=== PATIENT | male | born 1955 | race Caucasian/White ===

== ENCOUNTER 2018-01-30 09:23 | Inpatient (IN) ==
[2018-01-30] MEDS ORDERED: ALBUTEROL/IPRATROPIUM 3 ML NEB RESP TX STA (09:46)
[2018-01-30] MEDS ORDERED: FUROSEMIDE 100 MG/10 ML VIAL IV STA (09:46)
[2018-01-30] MEDS ORDERED: hydrALAZINE 20 MG/1 ML VIAL IV STA (09:46)
[2018-01-30 09:50] LABS: Basophils % 0.4 % (0.0-0.8); Eosinophils # 0.2 10*3/uL (0.0-0.87); Eosinophils % 2.3 % (0.00-10.9); Hematocrit 36.8 VOL% (42.0-52.0); Hemoglobin 12.4 GM/DL (14.0-18.0); Immature Granulocytes % 0.4 %; Immature Granulocytes Absolute 0.03 #; Lymphocytes % 13.1 % (21.2-54.2); Mean Corpuscular HGB Conc 33.7 GM/DL (32-36); Mean Corpuscular Hemoglobin 32 PG (27-34); Mean Corpuscular Volume 94.1 FL (87-102); Monocytes # 0.6 10*3/uL (0.11-0.8); Monocytes % 7.3 % (1.7-12.7); Neutrophils % 76.5 % (38.7-73.9); Platelet Count 155 T/CUMM (130-400); Red Blood Count 3.91 MC/CUMM (3.8-5.5); Red Cell Distribution Width 14.3 % (9.3-17.3); White Blood Count 7.9 T/CUMM (4-12)
[2018-01-30 10:03] LABS: Alanine Aminotransferase 20 U/L (16-61); Albumin 3.6 G/DL (3.4-5.0); Alkaline Phosphatase 60 U/L (45-117); Aspartate Amino Transferase 19 U/L (0-37); Blood Urea Nitrogen 16 MG/DL (7-18); Calcium 8.9 MG/DL (8.5-10.1); Glucose 110 MG/DL (74-106); Potassium 4.3 MMOL/L (3.5-5.1); Sodium 143 MMOL/L (136-145); Total Protein 7.2 G/DL (6.4-8.3); Troponin I Only < 0.015 NG/ML (0.00-0.045)
[2018-01-30 10:07] LABS: INR 0.9; PT Patient Result 9.9 SECS
[2018-01-30 10:10] LABS: Troponin I Only < 0.015 NG/ML (0.00-0.045)
[2018-01-30] MEDS ORDERED: ONDANSETRON 4 MG/2 ML VIAL IV PRN (10:38)
[2018-01-30] MEDS ORDERED: GLUCAGON 1 MG VIAL IM PRN (10:38)
[2018-01-30] MEDS ORDERED: DEXTROSE 50% 25 GM/50 ML VIAL IV PRN (10:38)
[2018-01-30 11:02] LABS: Apearance,Urine CLEAR (Clear); Bilirubin,Urine Negative (Negative); Blood, Urine Negative (Negative); Glucose,Urine (UA) Negative (Negative); Ketones,Urine Negative (Negative); Mucus,Urine Occasional /LPF (Occasional); Nitrite,Urine Negative (Negative); Protein,Urine Negative; RBC,Urine <1 /HPF (0-4); Squamous Epithelial Cell,Urine Occasional /HPF (0-10); Urine Color Straw (Yellow); Urine Specific Gravity 1.006 (1.001-1.035); Urine Urobilinogen < 2.0 EU/DL (0.2-1.0); WBC,Urine <1 /HPF (0-6)
[2018-01-30] MEDS ORDERED: cloNIDine 0.1 MG TABLET PO PRN (11:58)
[2018-01-30] MEDS: INSULIN REGULAR 100 UNIT/ML SUBCUT SCH ×3 (13:31→21:05)
[2018-01-30] MEDS: amLODIPine 10 MG TABLET PO SCH (13:32)
[2018-01-30] MEDS: metFORMIN 500 MG TABLET PO SCH (16:49)
[2018-01-30] MEDS: GLIMEPIRIDE 2 MG TABLET PO SCH (16:49)
[2018-01-30] MEDS: FUROSEMIDE 40 MG/4 ML VIAL IV SCH (16:50)
[2018-01-30] MEDS: GEMFIBROZIL 600 MG TABLET PO SCH (21:49)
[2018-01-30] MEDS: TICAGRELOR 90 MG TABLET PO SCH (21:49)
[2018-01-30] MEDS: CARVEDILOL 25 MG TABLET PO SCH (21:49)
[2018-01-31 02:12] LABS: Basophils % 0.3 % (0.0-0.8); Eosinophils # 0.2 10*3/uL (0.0-0.87); Eosinophils % 2.9 % (0.00-10.9); Hematocrit 33.2 VOL% (42.0-52.0); Hemoglobin 11.2 GM/DL (14.0-18.0); Immature Granulocytes % 0.4 %; Immature Granulocytes Absolute 0.03 #; Lymphocytes # 1.3 10*3/uL (1.4-4.0); Lymphocytes % 19.6 % (21.2-54.2); Mean Corpuscular HGB Conc 33.7 GM/DL (32-36); Mean Corpuscular Hemoglobin 31 PG (27-34); Mean Corpuscular Volume 91.7 FL (87-102); Mean Platelet Volume 11.3 FL (9.6-12.0); Monocytes # 0.6 10*3/uL (0.11-0.8); Monocytes % 8.5 % (1.7-12.7); Neutrophils # 4.7 10*3/uL (1.4-7.4); Neutrophils % 68.3 % (38.7-73.9); Platelet Count 142 T/CUMM (130-400); Red Blood Count 3.62 MC/CUMM (3.8-5.5); Red Cell Distribution Width 14.2 % (9.3-17.3); White Blood Count 6.8 T/CUMM (4-12)
[2018-01-31 02:32] LABS: Risk Ratio 1.71
[2018-01-31 02:37] LABS: Calcium 8.6 MG/DL (8.5-10.1); Osmolality,Calculated 283.3 MOS/KG (273-304); Potassium 3.5 MMOL/L (3.5-5.1); Thyroid Stimulating Hormone 2.27 uIU/ml (0.358-3.74)
[2018-01-31] MEDS: INSULIN REGULAR 100 UNIT/ML SUBCUT SCH ×4 (07:27→20:57)
[2018-01-31] MEDS: TICAGRELOR 90 MG TABLET PO SCH ×2 (08:15→21:50)
[2018-01-31] MEDS: ALLOPURINOL 300 MG TABLET PO SCH (08:15)
[2018-01-31] MEDS: ASPIRIN EC 81 MG TABLET PO SCH (08:15)
[2018-01-31] MEDS: LOSARTAN 50 MG TABLET PO SCH (08:15)
[2018-01-31] MEDS: GEMFIBROZIL 600 MG TABLET PO SCH ×2 (08:15→21:50)
[2018-01-31] MEDS: PANTOPRAZOLE 40 MG TABLET PO SCH (08:15)
[2018-01-31] MEDS: CHOLECALCIFEROL 5,000 UNIT TABLET PO SCH (08:15)
[2018-01-31] MEDS: ATORVASTATIN 80 MG TABLET PO SCH (08:15)
[2018-01-31] MEDS: ISOSORBIDE MONONITRATE 30 MG TABLET PO SCH (08:15)
[2018-01-31] MEDS: THYROID 60 MG TABLET PO SCH (08:15)
[2018-01-31] MEDS: CARVEDILOL 25 MG TABLET PO SCH ×2 (08:15→16:17)
[2018-01-31] MEDS: amLODIPine 10 MG TABLET PO SCH (08:15)
[2018-01-31] MEDS: metFORMIN 500 MG TABLET PO SCH ×2 (08:16→16:17)
[2018-01-31] MEDS: GLIMEPIRIDE 2 MG TABLET PO SCH ×2 (08:16→16:16)
[2018-01-31] MEDS: FUROSEMIDE 40 MG/4 ML VIAL IV SCH ×2 (08:16→16:16)
[2018-01-31] MEDS ORDERED: LOSARTAN 50 MG TABLET PO SCH (09:00)
[2018-01-31] MEDS ORDERED: LIRAGLUTIDE 1.8 MG SUBCUT SCH (09:00)
[2018-01-31] MEDS ORDERED: ZALEPLON 5 MG CAPSULE PO PRN (21:09)
[2018-02-01 05:36] LABS: Calcium 8.5 MG/DL (8.5-10.1); Osmolality,Calculated 282.4 MOS/KG (273-304); Potassium 3.5 MMOL/L (3.5-5.1)
[2018-02-01] MEDS: FUROSEMIDE 40 MG/4 ML VIAL IV SCH (09:09)
[2018-02-01] MEDS: GLIMEPIRIDE 2 MG TABLET PO SCH (09:09)
[2018-02-01] MEDS: GEMFIBROZIL 600 MG TABLET PO SCH (09:09)
[2018-02-01] MEDS: metFORMIN 500 MG TABLET PO SCH (09:09)
[2018-02-01] MEDS: CARVEDILOL 25 MG TABLET PO SCH (09:10)
[2018-02-01] MEDS: LOSARTAN 50 MG TABLET PO SCH (09:10)
[2018-02-01] MEDS: ASPIRIN EC 81 MG TABLET PO SCH (09:10)
[2018-02-01] MEDS: ALLOPURINOL 300 MG TABLET PO SCH (09:10)
[2018-02-01] MEDS: THYROID 60 MG TABLET PO SCH (09:10)
[2018-02-01] MEDS: ATORVASTATIN 80 MG TABLET PO SCH (09:10)
[2018-02-01] MEDS: ISOSORBIDE MONONITRATE 30 MG TABLET PO SCH (09:10)
[2018-02-01] MEDS: PANTOPRAZOLE 40 MG TABLET PO SCH (09:10)
[2018-02-01] MEDS: CHOLECALCIFEROL 5,000 UNIT TABLET PO SCH (09:10)
[2018-02-01] MEDS: TICAGRELOR 90 MG TABLET PO SCH (09:10)
[2018-02-01] MEDS: INSULIN REGULAR 100 UNIT/ML SUBCUT SCH ×2 (09:11→12:56)
[2018-02-01 11:33] VITALS: BP 128/75
== END 2018-02-01 15:26 | disposition home or self-care (01) | DRG 305 ==
LOC: EDBD → EDUNIT# → N.ED 09:23 → N.EDINP 10:38 → N.TELEN 11:55
PROVIDERS: ADMIT Internal Medicine; ATTEND Internal Medicine